=== PATIENT | male | born 1970 | race Caucasian/White ===

== ENCOUNTER 2017-11-26 05:23 | Day surgery (SDC) | payer BC ==
[2017-11-11 09:04] LABS: URINE BILIRUBIN NEGATIVE (Negative); URINE BLOOD NEGATIVE (Negative); URINE CLARITY CLEAR; URINE COLOR YELLOW; URINE GLUCOSE-RANDOM* NEGATIVE (Negative); URINE KETONES NEGATIVE (Negative); URINE LEUKOCYTES-REFLEX NEGATIVE (Negative); URINE NITRITE-REFLEX NEGATIVE (Negative); URINE PROTEIN (DIPSTICK) TRACE (Negative); URINE SPECIFIC GRAVITY 1.015 (1.005-1.035); URINE UROBILINOGEN 0.2 E.U./dl (0.2-1.0)
[2017-11-11 09:05] LABS: HEMATOCRIT 43.5 % (42.0-52.0); HEMOGLOBIN 14.6 gm/dL (14.0-18.0); MCH 30.4 pg (26.0-34.0); MCHC 33.6 g/dL (28.0-37.0); MCV 90.5 fL (80.0-100.0); RBC 4.8 mil/uL (4.50-6.00); RDW 15.5 % (10.5-14.5); WBC 5.4 thou/uL (4.0-11.0)
[2017-11-11 09:20] LABS: PROTIME 9.8 Seconds (9.3-11.4)
[2017-11-11 09:28] LABS: ALBUMIN 4.2 g/dL (3.4-5.0); CALCIUM 9.9 mg/dL (8.5-10.1); CREATININE 1.6 mg/dL (0.7-1.3); POTASSIUM 4.1 mmol/L (3.5-5.1); TOTAL BILIRUBIN 0.7 mg/dL (<0.1-1.0)
[~2017-11-26] VITALS: Ht 177.8 cm; Wt 99.4 kg
--- NOTE | ~2017-11-26 | EKG ---
[address] [address] ELECTROCARDIOGRAM REPORT Name: GUICHO JORDAN Room #: PRE IN [facility]#: [id number] Admission: Attend Phys: Austin Washington MD Discharge: Date of : 70 Report #: [id number] THIS REPORT FOR: //name// [facility] Test Date: 2017-11-11 Test Time: 08:54:25 Pat Name: GUICHO JORDAN Department: Room: Gender: Director Economic: jermaine helton : 1970 Requested By: Austin Washington Order Number: [id number] MD: Wayne Ansari Measurements Intervals [place] Rate: 62 P: 11 HI: 135 QRS: 43 QRSD: 98 T: 34 QT: 447 QTc: 454 Interpretive Statements Sinus rhythm No previous ECG available for comparison Electronically Signed On 11-12-2017 9:43:40 CDT by Wayne Ansari [email or web address] <ELECTRONICALLY SIGNED> By: Wayne Ansari MD 11/12/17 0943 [id number] Wayne Ansari MD /EPI
--- NOTE | ~2017-11-26 | O ---
[address] [address] OPERATIVE REPORT Name: GUICHO JORDAN Room #: 458-P [facility]#: [id number] Admission: 11/26/17 Attend Phys: Austin Washington MD Discharge: Date of : 70 Report #: [id number] THIS REPORT FOR: //name// CC: Delano Washington DATE OF SERVICE: 11/26/2017 SERVICE: Orthopedics. FACILITY: [facility]. SURGEON: Austin Washington MD DEVELOPMENT MGR: Barbara Haines NP PREOPERATIVE DIAGNOSES: 1. Severe right knee varus type osteoarthritis 2. Severe flexion contracture, right knee. POSTOPERATIVE DIAGNOSES: 1. Severe right knee varus type osteoarthritis 2. Severe flexion contracture, right knee. PROCEDURES: 1. Right total knee arthroplasty. 2. Computer navigated robotic assistance. ANESTHESIA: General with regional. COMPLICATIONS: None. DRAINS: None. SPECIMENS: None. ESTIMATED BLOOD LOSS: 100 mL. FINDINGS: [employer] Oxinium size 7 femur with size 6 tibial component and 35 mm patellar button and size 9 high flexion polyethylene insert. HISTORY: The patient is a 47-year-old gentleman with history of advanced severe right knee osteoarthritis that had failed all conservative measures including rest, activity modifications, oral medications and corticosteroid injections and physical therapy. He continued to have significant stiffness, deformity and lifestyle limiting pain. 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 Risks, benefits, alternatives and indications of surgical treatment were discussed with him in detail. He gave full informed consent and wished to proceed with surgical treatment. Risks include but not limited to pain, bleeding, infection, injury to nerves or blood vessels, persistent pain despite surgical intervention, failure of any repairs, reconstructions, need for revision surgery as well including hardware explained as well as complications related to anesthesia such as stroke, heart attack, pulmonary complications, thromboembolic disease and . Despite these risks, he wished to proceed. PROCEDURE IN DETAIL: After right lower extremity was correctly identified in the preoperative holding area as the operative extremity, the patient underwent placement of a single shot regional nerve block by anesthesia team. He was then taken to the operating room where general anesthesia was induced without complication. He was padded appropriately. Prophylactic antibiotics were administered at appropriate time. Tourniquet was applied to the right leg. Right lower extremity was then prepped and draped in standard sterile fashion. Time-out procedure was performed. Esmarch was used to to exsanguinate. Tourniquet was inflated to 250 mmHg. Total tourniquet time was 125 minutes with the added tourniquet time owing to proper positioning of this patient's implant as the initial cut resected less anterior bone than desired and utilized the instrumentation to translate the femoral resection posteriorly. Standard anterior approach was made to the knee with a medial parapatellar arthrotomy. The osteophytes were excised. The menisci were excised. The cruciate ligaments were excised. The retropatellar tendon fat pad was excised in a typical fashion. A limited anterior soft tissue release was performed and the knee was exposed. The [employer] computer-assisted navigation system was used to calibrate this patient's underlying anatomy. He had severe flexion varus deformity. 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 The femur was appropriately templated and then the distal femur was prepared for the 4-in-1 cutting block, which was placed, the anterior resection was made and I felt that the implant would be sitting too proud anteriorly, so I made adjustments, repositioned the reference point and translated the distal 4-in-1 cutting block posteriorly approximately 2 mm, which provided a good contour at the anterior femoral cortex. After this was completed, the remaining 3 cuts on the 4-in-1 cutting block were performed and then the attention was turned towards the tibia. The tibial anatomy was mapped out We spent extra time assessing this particular patient's rotation, varus and valgus positioning, so that we had optimal positioning with optimal balancing of his flexion and extension gaps preferring a slightly tighter flexion gap to minimize the risk of mid range instability. After the tibia was mapped out, the tibial cut was made in the typical fashion with the external cutting guide and the flexion and extension block was used to assess the flexion and extension gaps, which showed to be [address] [address] OPERATIVE REPORT Name: GUICHO JORDAN Room #: 458-P [facility]#: [id number] Admission: 11/26/17 Attend Phys: Austin Washington MD Discharge: Date of : 70 Report #: [id number] tight medially and so a lamina icer air conditioning was utilized to perform a pie-crusting technique with a limited medial release. This allowed for well balanced flexion and extension gaps medial and laterally. The first of 430 mL syringes of a periarticular injection cocktail were then placed within the posterior capsule while aspirating first before injecting to provide good postoperative anesthesia. The femoral box cut was then prepared and the trials were placed. Posterior osteophytes were resected off of the femur and then the knee was found to be well balanced in good alignment with the external guide jolene and then the tibia was finally positioned and punched for size 6 tibial tray. The patella was then prepared in a typical fashion. The trials were removed. The knee was copiously irrigated and then the final implants were cemented into position after we confirmed that all soft tissue and bony debris had been removed from the knee. The knee was held in extension and the cement was allowed to cure with the implants appropriately cemented in position. The excess cement was removed. The tourniquet was let down. Hemostasis was achieved. The remaining 3 syringes were utilized for the periarticular injection cocktail for postoperative pain control. After this was completed, the knee was taken through range of motion and was found to be well balanced and no further soft tissue work or bony work was required and the 9 mm polyethylene insert was then placed securely and the knee was found to have full extension with good balancing. The wound was once again irrigated. A gram of vancomycin powder was then placed into the wound. The wound was closed with 0 Vicryl suture in [id number] fashion closing the arthrotomy and then a flexion gravity test was performed confirming watertight secure repair. The deep fascial layer was closed with 2-0 Vicryl and the skin was closed with 2-0 Vicryl followed by running subcuticular 3-0 nylon and Dermabond. A SHIRLEY dressing was applied followed by compression stocking. The patient was then awakened from anesthesia and taken to recovery room in stable condition. There were no complications and all counts were reported as correct. <ELECTRONICALLY SIGNED> By: Austin Washington MD 11/27/17 1008 [id number] Austin Washington MD /nt
[~2017-11-26 05:23] MED LIST: LOSARTAN-HCTZ1 EAC2 PO; NEURONTIN 300300 M1 PO; OMEPRAZOLE40 MG PO; SYNTHROID175 MCG PO; VITAMIN E400 UNIT PO
[2017-11-26 10:35] VITALS: BP 127/78
[2017-11-26 17:55] VITALS: BP 145/82
[2017-11-26 19:42] VITALS: BP 137/78
[2017-11-27 00:46] VITALS: BP 128/70
[2017-11-27 05:42] LABS: HEMATOCRIT 36.2 % (42.0-52.0); HEMOGLOBIN 12.2 gm/dL (14.0-18.0); MCH 31.1 pg (26.0-34.0); MCHC 33.6 g/dL (28.0-37.0); MCV 92.5 fL (80.0-100.0); RBC 3.91 mil/uL (4.50-6.00); RDW 15.2 % (10.5-14.5)
[2017-11-27 07:20] VITALS: BP 110/70
== END 2017-11-27 15:59 | disposition home or self-care (01) ==
LOC: OR 05:23 → PRE 05:23 → TBA 05:24 → PRE 05:34 → EDSTATUS 14:24 → OR 14:50 → PRE 15:01 → OR 15:28 → 4W 17:36 → OR 11-27 15:59
PROVIDERS: Orthopaedic Surgery Sports Medicine
DX: M17.11 Unilateral primary osteoarthritis, right knee (principal); M24.561 Contracture, right knee; I10 Essential (primary) hypertension; K21.9 Gastro-esophageal reflux disease without esophagitis; Z79.899 Other long term (current) drug therapy; Z87.891 Personal history of nicotine dependence; Z85.9 Personal history of malignant neoplasm, unspecified; Z85.810 Personal history of malignant neoplasm of tongue
CPT/HCPCS: 10047; 50010; 50101; 50415; 50954; 51130; 51225; 51320; 51771; 52001; 52282; 53078; 53365; 54118; 56527; 56528; 57095; 57103; 57109; 57110; 57113; 57127; 57180; 62110; 62900; 64042; 70005